=== PATIENT | male | born 1980 | race Caucasian/White ===

== ENCOUNTER 2019-02-09 15:01 | Inpatient (IN) | payer OTHER ==
[~2019-02-09] VITALS: Ht 188 cm; Wt 154.6 kg
[~2019-02-09 15:01] MED LIST: ALBIPROI INH; ALBU90OI INH; AMOX500 PO; ASPI325 PO; CEPH500 PO; DIPH50 PO; ERYT333ERA PO; GUAN1; HCTZ 25 MG; HYDACE5325 PO; HYDGUAL120 PO; METO100ER; METO100ER PO; METO50ER; METO50ER PO; PSEU120ER PO; RANI150 PO; RXHYDGUAS PO; SERT50; SULTRIDS PO
[2019-02-09] MEDS ORDERED: AMLO5 PO (15:51)
[2019-02-09] MEDS ORDERED: METF500 PO (15:51)
[2019-02-09] MEDS ORDERED: ZESTORETIC 20-121 EA PO (15:51)
[2019-02-09] MEDS ORDERED: BASAGLAR K100 UNIT/1 (15:52)
[2019-02-09] MEDS ORDERED: FLUOXETINE HCL60 MG PO (15:52)
[2019-02-09] MEDS ORDERED: ACET500 PO (15:53)
[2019-02-09] MEDS ORDERED: Novolog100 UNIT/2 SC (15:53)
[2019-02-09] MEDS ORDERED: Amitriptyline100 MG PO (15:54)
[2019-02-09] MEDS ORDERED: ALBU90OI INH (15:54)
[2019-02-09] MEDS ORDERED: STIOLTO RESPIMAT4 GM INH (15:54)
[2019-02-09 15:58] LABS: BASOPHILS ABSOLUTE AUTO 0.09 K/mm3 (0.00-0.23); BASOPHILS PERCENT AUTO 1 % (0-2); EOSINOPHILS ABSOLUTE AUTO 0.04 K/mm3 (0.00-0.68); EOSINOPHILS PERCENT AUTO 0 % (0-6); Hematocrit 41.5 % (37.0-53.0); Hemoglobin 13.7 g/dL (13.5-17.5); IMMATURE GRAN ABSOLUTE AUTO 0.19 K/mm3 (0.00-0.10); IMMATURE GRAN PERCENT AUTO 1 % (0-1); LYMPHOCYTES ABSOLUTE AUTO 1.37 K/mm3 (0.84-5.20); LYMPHOCYTES PERCENT AUTO 9 % (21-46); MONOCYTES ABSOLUTE AUTO 1.35 K/mm3 (0.16-1.47); MONOCYTES PERCENT AUTO 8 % (4-13); Mean Corpuscular HGB 26.1 pg (26.0-34.0); Mean Corpuscular Volume 79 fL (80-100); Mean Platelet Volume 9.9 fL (9.1-12.4); NEUTROPHILS ABSOLUTE AUTO 13.13 K/mm3 (1.96-9.15); NEUTROPHILS PERCENT AUTO 81 % (41-73); Platelet Count 214 K/mm3 (150-400); RDW Coefficient Variation 14.8 % (11.7-14.2); RDW Standard Deviation 42.6 fL (35.1-46.3); Red Blood Cell Count 5.24 M/mm3 (4.30-5.90); White Blood Cell Count 16.17 K/mm3 (4.00-11.30)
[2019-02-09 16:26] LABS: Alanine Aminotransfer (ALT/SGP 17 U/L (12-78); Albumin, Blood 2.6 g/dL (3.4-5.0); Albumin/Globulin Ratio 0.5 (0.8-1.8); Alk Phos 73 U/L (50-136); Anion Gap 9 mmol/L (6-16); Aspartate Aminotrans (AST/SGOT 14 U/L (12-37); Bilirubin, Total 0.7 mg/dL (0.1-1.0); Blood Urea Nitrogen 15 mg/dL (8-24); Bun/Creatinine Ratio 20.1 (12.0-20.0); CO2, Blood 25 mmol/L (21-32); Chloride, Blood 96 mmol/L (98-108); Creatinine, Blood 0.75 mg/dL (0.60-1.20); Globulin, Blood 5.5 g/dL (2.2-4.0); Glomerular Filtration Rate >60 (60-); Glucose, Blood 215 mg/dL (70-99); Potassium, Blood 3.7 mmol/L (3.5-5.5); Sodium, Blood 130 mmol/L (136-145); Total Protein, Blood 8.1 g/dL (6.4-8.2)
--- NOTE | 2019-02-09 22:55 | NUR ---
CRIT LAB VALUE: LACTIC ACID 2.2 PT IS CURRENTLY UNDER THE SEPSIS PROTOCOL. IVF AND FREQ TEMP CHECKS ARE BEING DONE. CHARGE NURSE NOTIFIED. WILL CONTINUE TO MONITOR CLOSELY
[2019-02-10 05:21] LABS: BASOPHILS ABSOLUTE AUTO 0.08 K/mm3 (0.00-0.23); BASOPHILS PERCENT AUTO 1 % (0-2); EOSINOPHILS ABSOLUTE AUTO 0.11 K/mm3 (0.00-0.68); EOSINOPHILS PERCENT AUTO 1 % (0-6); Hematocrit 39.3 % (37.0-53.0); Hemoglobin 12.8 g/dL (13.5-17.5); IMMATURE GRAN ABSOLUTE AUTO 0.18 K/mm3 (0.00-0.10); IMMATURE GRAN PERCENT AUTO 1 % (0-1); LYMPHOCYTES ABSOLUTE AUTO 1.27 K/mm3 (0.84-5.20); LYMPHOCYTES PERCENT AUTO 8 % (21-46); MONOCYTES ABSOLUTE AUTO 1.47 K/mm3 (0.16-1.47); MONOCYTES PERCENT AUTO 9 % (4-13); Mean Corpuscular HGB 25.9 pg (26.0-34.0); Mean Corpuscular HGB Conc 32.6 g/dL (31.5-36.5); Mean Corpuscular Volume 80 fL (80-100); Mean Platelet Volume 10.3 fL (9.1-12.4); NEUTROPHILS ABSOLUTE AUTO 12.63 K/mm3 (1.96-9.15); NEUTROPHILS PERCENT AUTO 80 % (41-73); Platelet Count 212 K/mm3 (150-400); RDW Standard Deviation 42.9 fL (35.1-46.3); Red Blood Cell Count 4.94 M/mm3 (4.30-5.90); White Blood Cell Count 15.74 K/mm3 (4.00-11.30)
[2019-02-10 05:42] LABS: Anion Gap 9 mmol/L (6-16); Blood Urea Nitrogen 13 mg/dL (8-24); Bun/Creatinine Ratio 17.6 (12.0-20.0); CO2, Blood 25 mmol/L (21-32); Calcium, Blood 8.5 mg/dL (8.5-10.1); Chloride, Blood 101 mmol/L (98-108); Creatinine, Blood 0.74 mg/dL (0.60-1.20); Glomerular Filtration Rate >60 (60-); Glucose, Blood 134 mg/dL (70-99); Potassium, Blood 3.4 mmol/L (3.5-5.5); Sodium, Blood 135 mmol/L (136-145)
--- NOTE | 2019-02-10 05:53 | NUR ---
A/OX4, INDEPENDENT TO THE BR, PLEASANT, COOPERATIVE. PT REPORTS CHRONIC TACHYCARDIA, SO HEART RATE IS NOT AN ACCURATE INDICATOR OF SEPTIC SHOCK. HOWEVER, PT HAS BEEN FEBRILE FOR MOST OF THIS SHIFT. PT HAS BEEN MEDICATED FOR FEVER PER ORDER, AND HIS TEMP HAS BEEN CLOSELY MONITORED THROUGHOUT THIS SHIFT. PT TOLERATING IV ABX W/OUT ADVERSE EFFECT. BP REMAINS WNL, BUT PT'S LAST LACTIC ACID WAS ELEVATED. PT REPORTS THAT HIS R LE "FEELS BETTER, IT'S NOT SO TIGHT ANYMORE". WILL REPORT TO ON-COMING SHIFT.
--- NOTE | 2019-02-10 18:53 | NUR ---
SHIFT SUMMARY; PT ADMITED FOR CELLULITIS IN THE RLE. HE IS ABLE TO AMBULATE TO THE RESTROOM INDEPENDENTATLY. PT DEVELOPED A HEADACE AND WAS GIVEN PRN TYLENOL. PTS AT BEDSIDE. HE IS EATING AND DRINKING WELL. LACTIC ACID LEVELS IMPROVED FROM PERVIOUS SHIFT.
--- NOTE | 2019-02-11 04:27 | NUR ---
SHIFT SUMMARY: PT IS ALERT AND ORIENTED. PT IS CALM AND COOPERATIVE WITH CARE. PT CALLS APPROPRIATELY. PT IS INDEPENDENT IN THE ROOM. PT HAD FEVER EARLY IN THE NIGHT, GAVE PRN IBUPROFEN. PT DENIES PAIN, NAUSEA, VOMITING, AND SOB. RLE WEEPING A LITTLE, WRAPPED WITH GAUZE BANDAGE. PT SLEPT INTERMITTENTLY THROUGHOUT THE NIGHT. NO ACUTE CHANGES OR COMPICATIONS. BED IN LOW POSITION, CALL LIGHT WITHIN REACH. WILL REPORT TO DAY NURSE.
[2019-02-11 05:42] LABS: BASOPHILS ABSOLUTE AUTO 0.08 K/mm3 (0.00-0.23); BASOPHILS PERCENT AUTO 1 % (0-2); EOSINOPHILS ABSOLUTE AUTO 0.16 K/mm3 (0.00-0.68); EOSINOPHILS PERCENT AUTO 1 % (0-6); Hematocrit 38.8 % (37.0-53.0); Hemoglobin 12.5 g/dL (13.5-17.5); IMMATURE GRAN ABSOLUTE AUTO 0.43 K/mm3 (0.00-0.10); IMMATURE GRAN PERCENT AUTO 3 % (0-1); LYMPHOCYTES ABSOLUTE AUTO 1.11 K/mm3 (0.84-5.20); LYMPHOCYTES PERCENT AUTO 9 % (21-46); MONOCYTES ABSOLUTE AUTO 1.33 K/mm3 (0.16-1.47); MONOCYTES PERCENT AUTO 11 % (4-13); Mean Corpuscular HGB 26.3 pg (26.0-34.0); Mean Corpuscular HGB Conc 32.2 g/dL (31.5-36.5); Mean Corpuscular Volume 82 fL (80-100); Mean Platelet Volume 10.1 fL (9.1-12.4); NEUTROPHILS ABSOLUTE AUTO 9.55 K/mm3 (1.96-9.15); NEUTROPHILS PERCENT AUTO 75 % (41-73); Platelet Count 232 K/mm3 (150-400); RDW Coefficient Variation 14.9 % (11.7-14.2); RDW Standard Deviation 44.3 fL (35.1-46.3); Red Blood Cell Count 4.76 M/mm3 (4.30-5.90); White Blood Cell Count 12.66 K/mm3 (4.00-11.30)
[2019-02-11 05:56] LABS: Albumin, Blood 2.1 g/dL (3.4-5.0); Anion Gap 6 mmol/L (6-16); Blood Urea Nitrogen 15 mg/dL (8-24); Bun/Creatinine Ratio 17.6 (12.0-20.0); CO2, Blood 27 mmol/L (21-32); Calcium, Blood 8.8 mg/dL (8.5-10.1); Chloride, Blood 102 mmol/L (98-108); Creatinine, Blood 0.85 mg/dL (0.60-1.20); Glomerular Filtration Rate >60 (60-); Glucose, Blood 112 mg/dL (70-99); Phosphorus, Blood 3.8 mg/dL (2.5-4.9); Potassium, Blood 3.3 mmol/L (3.5-5.5); Sodium, Blood 135 mmol/L (136-145)
--- NOTE | 2019-02-11 18:40 | NUR ---
SHIFT SUMMARY: ELEVATED TEMPRATURE, TREATED WITH PRN IBUPROFEN, TEMPRATURE REMAINED ELEVATED SO GAVE PRN DOSE OF TYLENOL, PT IS NOW AFEBRILE. PT USED CHLORHEXIDINE CLOTH IN SHOWER TO BLE. PT INDEPENDENT IN THE ROOM. NO OTHER ACUTE CHANGES THIS SHIFT. PT EATING AND DRINKING WELL.
[2019-02-12 05:41] LABS: BASOPHILS ABSOLUTE AUTO 0.06 K/mm3 (0.00-0.23); BASOPHILS PERCENT AUTO 1 % (0-2); EOSINOPHILS ABSOLUTE AUTO 0.17 K/mm3 (0.00-0.68); EOSINOPHILS PERCENT AUTO 2 % (0-6); Hematocrit 38.3 % (37.0-53.0); Hemoglobin 12.4 g/dL (13.5-17.5); IMMATURE GRAN ABSOLUTE AUTO 0.24 K/mm3 (0.00-0.10); IMMATURE GRAN PERCENT AUTO 2 % (0-1); LYMPHOCYTES ABSOLUTE AUTO 0.87 K/mm3 (0.84-5.20); LYMPHOCYTES PERCENT AUTO 9 % (21-46); MONOCYTES ABSOLUTE AUTO 0.87 K/mm3 (0.16-1.47); MONOCYTES PERCENT AUTO 9 % (4-13); Mean Corpuscular HGB 25.9 pg (26.0-34.0); Mean Corpuscular HGB Conc 32.4 g/dL (31.5-36.5); Mean Corpuscular Volume 80 fL (80-100); Mean Platelet Volume 9.8 fL (9.1-12.4); NEUTROPHILS ABSOLUTE AUTO 7.91 K/mm3 (1.96-9.15); NEUTROPHILS PERCENT AUTO 78 % (41-73); Platelet Count 276 K/mm3 (150-400); RDW Coefficient Variation 15.2 % (11.7-14.2); RDW Standard Deviation 44.2 fL (35.1-46.3); Red Blood Cell Count 4.78 M/mm3 (4.30-5.90); White Blood Cell Count 10.12 K/mm3 (4.00-11.30)
--- NOTE | 2019-02-12 05:55 | NUR ---
SHIFT SUMMARY PT IS A 38 Y/O MALE, ADMITTED FOR RLE CELLULITIS. THE PT IS A&O X 4, AND INDEPENDENT IN THE ROOM. HE REPORTS THAT HIS LEG IS "MUCH BETTER", AND DENIED ANY PAIN IN HIS LEG DURING THE NIGHT. HE DID REPORT A MILD HEADACHE IN THE MORNING, WHICH WAS TREATED WITH THE SCHEDULED TORADOL. NO COMPLAINTS OF NAUSEA OR SOB. VITALS REMAINED STABLE. PT SLEPT WELL THROUGH THE NIGHT. NO OTHER ACUTE CHANGES IN PT CONDITION NOTED. WILL CONTINUE TO MONITOR AND TREAT PER EMAR.
[2019-02-12 06:06] LABS: Alanine Aminotransfer (ALT/SGP 14 U/L (12-78); Albumin, Blood 2.1 g/dL (3.4-5.0); Albumin/Globulin Ratio 0.4 (0.8-1.8); Alk Phos 79 U/L (50-136); Anion Gap 6 mmol/L (6-16); Aspartate Aminotrans (AST/SGOT 15 U/L (12-37); Bilirubin, Total 0.6 mg/dL (0.1-1.0); Blood Urea Nitrogen 17 mg/dL (8-24); Bun/Creatinine Ratio 20.5 (12.0-20.0); CO2, Blood 28 mmol/L (21-32); Calcium, Blood 9.2 mg/dL (8.5-10.1); Chloride, Blood 101 mmol/L (98-108); Creatinine, Blood 0.83 mg/dL (0.60-1.20); Globulin, Blood 5.2 g/dL (2.2-4.0); Glomerular Filtration Rate >60 (60-); Glucose, Blood 115 mg/dL (70-99); Potassium, Blood 3.5 mmol/L (3.5-5.5); Sodium, Blood 135 mmol/L (136-145); Total Protein, Blood 7.3 g/dL (6.4-8.2)
--- NOTE | 2019-02-12 10:50 | NUR ---
Gave Lantus 60 units verified two RN check with Estella Mcintosh RN and Corey Lopez RN.
--- NOTE | 2019-02-12 16:36 | NUR ---
SHIFT SUMMARY- PT DENIES PAIN. PT HAD FEVER OF 100.0 THIS AM. MEDS GIVEN PER EMAR. TEMP 99.3 THIS AFTERNOON. DENIES N/V. PT REPORTS SOB. PT REPORTS HE HAS COPD AND CURRENT LEVEL OF SOB IS BASELINE. 96% ON RA. INDEPENDENT IN THE ROOM. NO OTHER SIGNIFICANT CHANGES THIS SHIFT.
--- NOTE | 2019-02-13 05:08 | NUR ---
SHIFT SUMMARY PT A/O INDEPENDENT. DENIES PAIN IN R LEG. R LEG WEEPING FROM BLISTERS SMALL AMOUNT OF YELLOW FLUID. HE WAS ABLE TO SLEEP ON AND OFF T/O NIGHT. CALL LIGHT IN REACH.
[2019-02-13 05:19] LABS: BASOPHILS ABSOLUTE AUTO 0.08 K/mm3 (0.00-0.23); BASOPHILS PERCENT AUTO 1 % (0-2); EOSINOPHILS PERCENT AUTO 2 % (0-6); Hematocrit 38.6 % (37.0-53.0); Hemoglobin 12.3 g/dL (13.5-17.5); IMMATURE GRAN ABSOLUTE AUTO 0.26 K/mm3 (0.00-0.10); IMMATURE GRAN PERCENT AUTO 2 % (0-1); LYMPHOCYTES ABSOLUTE AUTO 1.49 K/mm3 (0.84-5.20); LYMPHOCYTES PERCENT AUTO 11 % (21-46); MONOCYTES ABSOLUTE AUTO 0.97 K/mm3 (0.16-1.47); MONOCYTES PERCENT AUTO 7 % (4-13); Mean Corpuscular HGB 25.8 pg (26.0-34.0); Mean Corpuscular HGB Conc 31.9 g/dL (31.5-36.5); Mean Corpuscular Volume 81 fL (80-100); Mean Platelet Volume 9.8 fL (9.1-12.4); NEUTROPHILS ABSOLUTE AUTO 10.28 K/mm3 (1.96-9.15); NEUTROPHILS PERCENT AUTO 77 % (41-73); Platelet Count 348 K/mm3 (150-400); RDW Coefficient Variation 15.1 % (11.7-14.2); Red Blood Cell Count 4.77 M/mm3 (4.30-5.90); White Blood Cell Count 13.28 K/mm3 (4.00-11.30)
[2019-02-13 05:45] LABS: Alanine Aminotransfer (ALT/SGP 14 U/L (12-78); Albumin, Blood 1.9 g/dL (3.4-5.0); Albumin/Globulin Ratio 0.4 (0.8-1.8); Alk Phos 85 U/L (50-136); Anion Gap 6 mmol/L (6-16); Aspartate Aminotrans (AST/SGOT 18 U/L (12-37); Bilirubin, Total 0.6 mg/dL (0.1-1.0); Blood Urea Nitrogen 20 mg/dL (8-24); Bun/Creatinine Ratio 24.9 (12.0-20.0); CO2, Blood 26 mmol/L (21-32); Chloride, Blood 102 mmol/L (98-108); Globulin, Blood 5.1 g/dL (2.2-4.0); Glomerular Filtration Rate >60 (60-); Glucose, Blood 83 mg/dL (70-99); Potassium, Blood 3.7 mmol/L (3.5-5.5); Sodium, Blood 134 mmol/L (136-145)
--- NOTE | 2019-02-13 17:19 | NUR ---
SHIFT SUMMARY- PT DENIES PAIN. DENIES N/V. PT REPORTS SOB IS AT HIS BASELINE LEVEL. PT'S BLOOD SUGAR 85 THIS AM. JUICE GIVEN TO PT. BLOOD SUGAR 115 UPON RECHECKING AN HOUR LATER. PT REPORTS 115 IS STILL A LOW BLOOD SUGAR FOR HIM. PT REFUSED AM LANTUS AND AM METFORMIN. PT'S BLOOD SUGAR 109 THIS PM. PT C/O OF HIS R LEG ITCHING. MEDS GIVEN PER EMAR. INDEPENDENT IN THE ROOM. FAMILY IN TO SEE PT THIS PM. NO OTHER SIGNIFICANT CHANGES THIS SHIFT.
--- NOTE | 2019-02-14 05:23 | NUR ---
SHIFT SUMMARY PT A/O INDEPENDENT. DENIES PAIN IN R LEG. SLEEP STUDY DONE TO SEE IF HE HAS SLEEP APNEA. R LEG STILL WEEPING SMALL AMOUNT OF YELLOW FLUID. CHEM BG @ 2100 WAS 127, HE REFUSED THE 50 OF LANTUS AND ALSO REFUSED THE PO REMERON, SAYING HE DIDN'T NEED IT. HE WAS ABLE TO SLEEP ON AND OFF T/O NIGHT. CALL LIGHT IN REACH.
[2019-02-14 05:27] LABS: BASOPHILS ABSOLUTE AUTO 0.06 K/mm3 (0.00-0.23); BASOPHILS PERCENT AUTO 1 % (0-2); EOSINOPHILS ABSOLUTE AUTO 0.15 K/mm3 (0.00-0.68); EOSINOPHILS PERCENT AUTO 1 % (0-6); Hematocrit 35.4 % (37.0-53.0); Hemoglobin 11.4 g/dL (13.5-17.5); IMMATURE GRAN ABSOLUTE AUTO 0.21 K/mm3 (0.00-0.10); IMMATURE GRAN PERCENT AUTO 2 % (0-1); LYMPHOCYTES ABSOLUTE AUTO 1.37 K/mm3 (0.84-5.20); LYMPHOCYTES PERCENT AUTO 11 % (21-46); MONOCYTES ABSOLUTE AUTO 0.89 K/mm3 (0.16-1.47); MONOCYTES PERCENT AUTO 7 % (4-13); Mean Corpuscular HGB 26.1 pg (26.0-34.0); Mean Corpuscular HGB Conc 32.2 g/dL (31.5-36.5); Mean Corpuscular Volume 81 fL (80-100); Mean Platelet Volume 9.4 fL (9.1-12.4); NEUTROPHILS ABSOLUTE AUTO 9.59 K/mm3 (1.96-9.15); NEUTROPHILS PERCENT AUTO 78 % (41-73); Platelet Count 378 K/mm3 (150-400); RDW Coefficient Variation 14.9 % (11.7-14.2); RDW Standard Deviation 44.8 fL (35.1-46.3); Red Blood Cell Count 4.36 M/mm3 (4.30-5.90); White Blood Cell Count 12.27 K/mm3 (4.00-11.30)
[2019-02-14 05:42] LABS: Anion Gap 5 mmol/L (6-16); Blood Urea Nitrogen 13 mg/dL (8-24); Bun/Creatinine Ratio 16.7 (12.0-20.0); CO2, Blood 27 mmol/L (21-32); Calcium, Blood 8.5 mg/dL (8.5-10.1); Chloride, Blood 103 mmol/L (98-108); Creatinine, Blood 0.78 mg/dL (0.60-1.20); Glomerular Filtration Rate >60 (60-); Glucose, Blood 140 mg/dL (70-99); Potassium, Blood 4.1 mmol/L (3.5-5.5); Sodium, Blood 135 mmol/L (136-145)
--- NOTE | 2019-02-14 14:31 | NUR ---
MID SHIFT NOTE PATIENT IS RESTING IN BED WATCHING TV. HE NOTED SOME SHORTNESS OF BREATH AFTER SHOWER UPON RETURNING TO BED THAT RESOLVED WITH REST.
[2019-02-14 15:45] LABS: Vancomycin, Trough 17.5 ug/mL (5.0-10.0)
--- NOTE | 2019-02-14 18:45 | NUR ---
SHIFT SUMMARY OX4 INDEPENDENT IN ROOM. CELLULITIS IMPROVING. NEW IV PLACED THIS P.M. VANCOMYCIN INFUSING. CALM, COOPERATIVE PLEASANT. CT WITH CONTRAST THIS P.M. REFUSED METFORMIN THIS P.M.
--- NOTE | 2019-02-15 04:36 | NUR ---
SHIFT SUMMARY: NO ACUTE CHANGES TONIGHT. PT C/O OF PAIN TO R ARM AT OLD IV SITE SINCE IV CONTRAST DURING CT. IV WAS REMOVED AROUND 1800 BY DAYSHIFT RN BUT REDNESS AND PAIN STILL SUBSIDES. RLE CELLULITIS IS BLISTERING, WEEPING. ELEVATED ON PILLOWS. REDNESS HAS DECREASED COMPARING TO TRACE MARKINGS ON SKIN. PT DENIES PAIN IN RLE. ZOSYN AND VANCO ADMINISTERED PER EMAR ORDERS. VSS. A&O X 4, INDEPENDENT IN RM. CBG 154, PT REFUSES PM LANTUS STATES, "IT WILL MAKE MY BLOOD SUGAR TANK." NO OTHER CHANGES TO REPORT. WILL CONT TO MONITOR AND PROVIDE CARE UNTIL PRESUMED BY ONCOMING RN.
--- NOTE | 2019-02-15 04:44 | NUR ---
METFORMIN TO BE HELD 02/15. WILL PASS OFF TO DAYSHIFT RN IN REPORT.
[2019-02-15 04:54] LABS: BASOPHILS ABSOLUTE AUTO 0.07 K/mm3 (0.00-0.23); BASOPHILS PERCENT AUTO 1 % (0-2); EOSINOPHILS ABSOLUTE AUTO 0.21 K/mm3 (0.00-0.68); EOSINOPHILS PERCENT AUTO 2 % (0-6); Hematocrit 35.5 % (37.0-53.0); Hemoglobin 11.2 g/dL (13.5-17.5); IMMATURE GRAN ABSOLUTE AUTO 0.17 K/mm3 (0.00-0.10); IMMATURE GRAN PERCENT AUTO 2 % (0-1); LYMPHOCYTES ABSOLUTE AUTO 1.42 K/mm3 (0.84-5.20); LYMPHOCYTES PERCENT AUTO 13 % (21-46); MONOCYTES ABSOLUTE AUTO 0.77 K/mm3 (0.16-1.47); MONOCYTES PERCENT AUTO 7 % (4-13); Mean Corpuscular HGB 25.3 pg (26.0-34.0); Mean Corpuscular HGB Conc 31.5 g/dL (31.5-36.5); Mean Corpuscular Volume 80 fL (80-100); Mean Platelet Volume 9.1 fL (9.1-12.4); NEUTROPHILS ABSOLUTE AUTO 8.06 K/mm3 (1.96-9.15); NEUTROPHILS PERCENT AUTO 75 % (41-73); Platelet Count 397 K/mm3 (150-400); RDW Coefficient Variation 14.9 % (11.7-14.2); RDW Standard Deviation 43.8 fL (35.1-46.3); Red Blood Cell Count 4.42 M/mm3 (4.30-5.90)
[2019-02-15 05:59] LABS: Alanine Aminotransfer (ALT/SGP 13 U/L (12-78); Albumin, Blood 1.7 g/dL (3.4-5.0); Albumin/Globulin Ratio 0.3 (0.8-1.8); Alk Phos 76 U/L (50-136); Anion Gap 6 mmol/L (6-16); Aspartate Aminotrans (AST/SGOT 15 U/L (12-37); Bilirubin, Total 0.4 mg/dL (0.1-1.0); Blood Urea Nitrogen 11 mg/dL (8-24); Bun/Creatinine Ratio 15.4 (12.0-20.0); CO2, Blood 26 mmol/L (21-32); Calcium, Blood 8.3 mg/dL (8.5-10.1); Chloride, Blood 104 mmol/L (98-108); Creatinine, Blood 0.71 mg/dL (0.60-1.20); Globulin, Blood 5.5 g/dL (2.2-4.0); Glomerular Filtration Rate >60 (60-); Glucose, Blood 121 mg/dL (70-99); Potassium, Blood 4.3 mmol/L (3.5-5.5); Sodium, Blood 136 mmol/L (136-145); Total Protein, Blood 7.2 g/dL (6.4-8.2)
[2019-02-15 16:13] LABS: Vancomycin, Trough 21.1 ug/mL (5.0-10.0)
--- NOTE | 2019-02-15 18:59 | NUR ---
SHIFT SUMMARY ART DENIED PAIN THIS SHIFT. HE ENDORSED ITCHING, GIVEN SCHEDUELD TOPICAL BENADRYL. GOT IV ABX ORDERED. VANCO WAS CRITICALLY HIGH, PHARMACY ADJUSTED DOSE. RLE ELEVATED. AM METFORMIN HELD, DR MAO WANTED PM DOSE GIVEN. HELD LANTUS PER DR MAO, CBGS HAVE BEEN STABLE WITHOUT IT. IN GOOD SPIRITS, COOPERATIVE WITH CARE. UP TO BR INDEPENDENTLY. WCTM
[2019-02-16 05:18] LABS: BASOPHILS ABSOLUTE AUTO 0.06 K/mm3 (0.00-0.23); BASOPHILS PERCENT AUTO 1 % (0-2); EOSINOPHILS ABSOLUTE AUTO 0.18 K/mm3 (0.00-0.68); EOSINOPHILS PERCENT AUTO 2 % (0-6); Hematocrit 36.5 % (37.0-53.0); Hemoglobin 11.5 g/dL (13.5-17.5); IMMATURE GRAN ABSOLUTE AUTO 0.15 K/mm3 (0.00-0.10); IMMATURE GRAN PERCENT AUTO 2 % (0-1); LYMPHOCYTES ABSOLUTE AUTO 1.23 K/mm3 (0.84-5.20); LYMPHOCYTES PERCENT AUTO 16 % (21-46); MONOCYTES ABSOLUTE AUTO 0.78 K/mm3 (0.16-1.47); MONOCYTES PERCENT AUTO 10 % (4-13); Mean Corpuscular HGB 25.7 pg (26.0-34.0); Mean Corpuscular HGB Conc 31.5 g/dL (31.5-36.5); Mean Corpuscular Volume 82 fL (80-100); NEUTROPHILS ABSOLUTE AUTO 5.49 K/mm3 (1.96-9.15); NEUTROPHILS PERCENT AUTO 70 % (41-73); Platelet Count 405 K/mm3 (150-400); RDW Coefficient Variation 14.7 % (11.7-14.2); RDW Standard Deviation 44.4 fL (35.1-46.3); Red Blood Cell Count 4.47 M/mm3 (4.30-5.90); White Blood Cell Count 7.89 K/mm3 (4.00-11.30)
[2019-02-16 05:56] LABS: Alanine Aminotransfer (ALT/SGP 14 U/L (12-78); Albumin, Blood 1.8 g/dL (3.4-5.0); Albumin/Globulin Ratio 0.3 (0.8-1.8); Alk Phos 74 U/L (50-136); Anion Gap 7 mmol/L (6-16); Aspartate Aminotrans (AST/SGOT 18 U/L (12-37); Bilirubin, Total 0.6 mg/dL (0.1-1.0); Blood Urea Nitrogen 14 mg/dL (8-24); Bun/Creatinine Ratio 12.4 (12.0-20.0); CO2, Blood 26 mmol/L (21-32); Calcium, Blood 8.4 mg/dL (8.5-10.1); Chloride, Blood 103 mmol/L (98-108); Creatinine, Blood 1.13 mg/dL (0.60-1.20); Globulin, Blood 5.7 g/dL (2.2-4.0); Glomerular Filtration Rate >60 (60-); Glucose, Blood 129 mg/dL (70-99); Potassium, Blood 4.2 mmol/L (3.5-5.5); Sodium, Blood 136 mmol/L (136-145); Total Protein, Blood 7.5 g/dL (6.4-8.2)
--- NOTE | 2019-02-16 07:27 | NUR ---
SHIFT SUMMARY: NO ACUTE CHANGES OVERNIGHT. RLE CELLULITIS PERSISTS, ANTIOBIOTICS AND ANTI-INFLAMMATORY PER ORDERS. PT DENIES PAIN TO RLE. C/O PRESSURE CAUSING N/T AT START OF SHIFT, HOWEVER, A LARGE PIECE OF SKIN BROKE FREE FROM ARCH OF R FT RELIEVING PRESSURE. PT REPORTS IMPROVEMENT IN N/T. NO OTHER CHANGES TO REPORT. WILL CONT TO MONITOR AND PROVIDE CARE UNTIL PRESUMED BY ONCOMING RN.
[2019-02-16 09:44] LABS: Vancomycin, Trough 23.4 ug/mL (5.0-10.0)
--- NOTE | 2019-02-16 19:50 | NUR ---
SHIFT SUMMARY PT A&OX4. ANXIOUS AT TIMES, MAJORITY OF SHIF CALM AND COOPERTIVE WITH CARE. PT RESTING IN BED DURING SHIFT. IND TO BATHROOM. REDNESS, SWELLING AND PEELING TO RLE, REDNESS RECEEDING FROM MARKED LINES. MEDICATED WITH BENEDRYL TOPICAL AND IV TORADOL FOR INFLAMMATION. PT RECEIVING IV ANTIBIOTICS. >90% ON RA, SOB WITH EXERTION. PT REPORTS NAUSEA THIS EVENING, NO EMESIS, DENIES NEEDS FOR MEDICATION. PT DENIES PAIN T/O SHIFT. PT RECEIVED ALBUMIN AND IV LASIX. VSS. NO OTHER ACUTE CHANGES NOTED DURING SHIFT. REPORT GIVEN TO ONCOMING RN.
[2019-02-17 05:46] LABS: BASOPHILS ABSOLUTE AUTO 0.06 K/mm3 (0.00-0.23); BASOPHILS PERCENT AUTO 1 % (0-2); EOSINOPHILS ABSOLUTE AUTO 0.18 K/mm3 (0.00-0.68); EOSINOPHILS PERCENT AUTO 2 % (0-6); Hematocrit 33.9 % (37.0-53.0); Hemoglobin 10.8 g/dL (13.5-17.5); IMMATURE GRAN ABSOLUTE AUTO 0.13 K/mm3 (0.00-0.10); IMMATURE GRAN PERCENT AUTO 1 % (0-1); LYMPHOCYTES ABSOLUTE AUTO 1.21 K/mm3 (0.84-5.20); LYMPHOCYTES PERCENT AUTO 11 % (21-46); MONOCYTES ABSOLUTE AUTO 0.99 K/mm3 (0.16-1.47); MONOCYTES PERCENT AUTO 9 % (4-13); Mean Corpuscular HGB 25.8 pg (26.0-34.0); Mean Corpuscular HGB Conc 31.9 g/dL (31.5-36.5); Mean Corpuscular Volume 81 fL (80-100); Mean Platelet Volume 9.4 fL (9.1-12.4); NEUTROPHILS ABSOLUTE AUTO 8.45 K/mm3 (1.96-9.15); NEUTROPHILS PERCENT AUTO 77 % (41-73); Platelet Count 443 K/mm3 (150-400); RDW Coefficient Variation 14.7 % (11.7-14.2); RDW Standard Deviation 43.7 fL (35.1-46.3); Red Blood Cell Count 4.18 M/mm3 (4.30-5.90); White Blood Cell Count 11.02 K/mm3 (4.00-11.30)
[2019-02-17 06:19] LABS: Bun/Creatinine Ratio 10.8 (12.0-20.0); Calcium, Blood 8.9 mg/dL (8.5-10.1); Creatinine, Blood 1.66 mg/dL (0.60-1.20); Potassium, Blood 4.5 mmol/L (3.5-5.5)
--- NOTE | 2019-02-17 06:22 | NUR ---
SHIFT SUMMARY PT IS A 38 Y/O MALE, ADMITTED FOR RLE CELLULITIS. HE IS A&O X 4, AND INDEPENDENT IN THE ROOM. THE PT DENIED ANY PAIN IN HIS LEG DURING THE NIGHT, AND STATES THAT HIS LEG IS "FEELING BETTER THAN IT WAS". HE DID REPORT BILATERAL FLANK PAIN DURING THE NIGHT THAT HE DESCRIBED "ELECTRIC SHOCKS" UP HIS BACK, THAT FADED WITHOUT PAIN MEDS, AND A HEADACHE THAT WAS TREATED WITH PRN TORADOL. NO REPORTS OF NAUSEA OR SOB. VITALS REMAINED STABLE. PT SLEPT FOR SHORT AMOUNTS DURING THE NIGHT. NO OTHER ACUTE CHANGES IN PT CONDITION NOTED. WILL CONTINUE TO MONITOR AND TREAT PER EMAR.
--- NOTE | 2019-02-17 16:29 | NUR ---
SHIFT SUMMARY PT A&OX4. PT CALM AND COOPERATIVE WITH CARE. PT UP IND IN ROOM. PT SOB WITH EXERTION, >90% ON RA, RESP EVEN AND UNLABORED. PT DENIES PAIN AND N/V T/O SHIFT. REDNESS ON RIGHT LOWER EXTREMITY, SKIN PEELING AND SWELLING NOTED. PT RECEIVING IV ANTIBITOICS. PT REPORTING LOOSE STOOL, DR INGRAM NOTIFIED, CONTINUE TO MONITOR. VSS. NO OTHER ACUTE CHANGES NOTED DURING SHIFT. WILL CONTINUE TO MONITOR UNTIL REPORT GIVEN TO ONCOMING RN.
[2019-02-18 06:05] LABS: Albumin, Blood 2.1 g/dL (3.4-5.0); Anion Gap 5 mmol/L (6-16); Blood Urea Nitrogen 17 mg/dL (8-24); Bun/Creatinine Ratio 9.9 (12.0-20.0); CO2, Blood 28 mmol/L (21-32); Chloride, Blood 102 mmol/L (98-108); Creatinine, Blood 1.72 mg/dL (0.60-1.20); Glomerular Filtration Rate 47 (60-); Glucose, Blood 148 mg/dL (70-99); Phosphorus, Blood 4.6 mg/dL (2.5-4.9); Potassium, Blood 4.6 mmol/L (3.5-5.5); Sodium, Blood 135 mmol/L (136-145)
--- NOTE | 2019-02-18 07:31 | NUR ---
02/18/19 0550 VITALS STABLE. DENIES ANY PAIN THIS SHIFT. UP TO THE BATHROOM PER SELF. SEVERAL SOFT, GREEN BMS. UNEVENTFUL NIGHT.
--- NOTE | 2019-02-18 18:26 | NUR ---
SHIFT SUMMARY ART'S RLE IS STILL RED AND SWOLLEN. PT DENIES PAIN. HAD A COUPLE MUCOUS/SOFT STOOL. RECEIVED IV ABX ORDERED. INDEPENDENT IN ROOM. POSSIBLE DISCHARGE TOMORROW. WCTM
--- NOTE | 2019-02-19 04:57 | NUR ---
NOC SHIFT SUMMARY PT HAS BEEN PLEASANT AND COOPERATIVE WITH CARE THIS NIGHT. STATES IMPROVEMENT IN HIS LEG. HAS SLEPT MOST IF THE NIGHT RESTFULLY AND IS SLEEPING NOW ACTUALLY. APPEARS IN NO ACUTE DISTRESS. NO ACUTE CHANGES NOTED. WILL CONTINUE TO MONITOR.
[2019-02-19 06:13] LABS: Anion Gap 5 mmol/L (6-16); Blood Urea Nitrogen 18 mg/dL (8-24); Bun/Creatinine Ratio 10.5 (12.0-20.0); CO2, Blood 29 mmol/L (21-32); Calcium, Blood 9.1 mg/dL (8.5-10.1); Chloride, Blood 101 mmol/L (98-108); Creatinine, Blood 1.71 mg/dL (0.60-1.20); Glomerular Filtration Rate 47 (60-); Glucose, Blood 126 mg/dL (70-99); Phosphorus, Blood 4.7 mg/dL (2.5-4.9); Potassium, Blood 4.6 mmol/L (3.5-5.5); Sodium, Blood 135 mmol/L (136-145)
[2019-02-19] MEDS ORDERED: ACET325 PO (14:04)
[2019-02-19] MEDS ORDERED: ALBU90OI INH (14:05)
[2019-02-19] MEDS ORDERED: AMLO5 PO (14:06)
[2019-02-19] MEDS ORDERED: Florastor250 MG PO (14:11)
[2019-02-19] MEDS ORDERED: Ceftriaxon1 GM/50 M1 IV (14:19)
--- NOTE | 2019-02-19 16:46 | NUR ---
PT DISCHARGED THE PT VERBALIZED UNDERSTANDING OF THE DC INSTRUCTIONS, AN APPOINTMENT WAS MADE FOR THE PT AT THE [facility] IN THE AM FOR IV ANTIBIOTICS, THE PT APPEARED TO BE BREATHING EASILY ON RA, THE PTS POWER GLIDE DRESSING WAS CHANGED BEFORE DISCHARGE, PERSCRIPTION FAXED TO [facility] REQUESTED, THE PT WAS TRANSFERED VIA WHEELCHAIR ACCOMPANIED BY THE [employer] SAFET[employer] INSPECTOR AND HIS FAMILY
== END 2019-02-19 15:48 | disposition home or self-care (01) | DRG 872 ==
LOC: ER 15:01 → MEDS 17:03 → ENPENDDIS 02-19 12:07 → MEDS 02-19 15:48
PROVIDERS: Family Medicine; Internal Medicine; Pharmacist; Physician Assistant; ADMIT Internal Medicine
DX: A41.9 Sepsis, unspecified organism (principal); L03.115 Cellulitis of right lower limb; N17.9 Acute kidney failure, unspecified; E87.1 Hypo-osmolality and hyponatremia; Z68.42 Body mass index [BMI] 45.0-49.9, adult; R65.20 Severe sepsis without septic shock; E11.9 Type 2 diabetes mellitus without complications; Z79.4 Long term (current) use of insulin; I10 Essential (primary) hypertension; F32.9 Major depressive disorder, single episode, unspecified; E66.01 Morbid (severe) obesity due to excess calories; J45.909 Unspecified asthma, uncomplicated; E88.01 Alpha-1-antitrypsin deficiency; Z87.891 Personal history of nicotine dependence; E87.6 Hypokalemia; G47.00 Insomnia, unspecified
CPT/HCPCS: 36415; 73701; 80048; 80053; 80069; 80202; 82947; 83605; 85025; 87040; 87070; 87075; 87205; 94640; 94760; 94762; 96365; 98960; 99284-25; C1751; J0690; J1650; J1815; J1885; J1940; J2543; J3370; J7030; J7050; P9046; Q9967

== ENCOUNTER 2019-02-20 00:16 | Day surgery (SDC) | payer OTHER ==
[~2019-02-20 00:16] MED LIST changes: +ACET325 PO; +ACET500 PO; +AMLO5 PO; +Amitriptyline100 MG PO; +BASAGLAR K100 UNIT/1; +Ceftriaxon1 GM/50 M1 IV; +FLUOXETINE HCL60 MG PO; +Florastor250 MG PO; +METF500 PO; +Novolog100 UNIT/2 SC; +STIOLTO RESPIMAT4 GM INH; +ZESTORETIC 20-121 EA PO
== END 2019-02-20 10:18 | disposition home or self-care (01) ==
LOC: ATC 00:16
DX: L03.115 Cellulitis of right lower limb (principal); I10 Essential (primary) hypertension; E11.42 Type 2 diabetes mellitus with diabetic polyneuropathy; E11.319 Type 2 diabetes mellitus with unspecified diabetic retinopathy without macular edema; J44.9 Chronic obstructive pulmonary disease, unspecified; K21.9 Gastro-esophageal reflux disease without esophagitis; D64.9 Anemia, unspecified; F41.1 Generalized anxiety disorder; G47.33 Obstructive sleep apnea (adult) (pediatric); E66.01 Morbid (severe) obesity due to excess calories; Z87.891 Personal history of nicotine dependence; Z79.899 Other long term (current) drug therapy; Z79.4 Long term (current) use of insulin; Z88.5 Allergy status to narcotic agent
CPT/HCPCS: 96365; J0696

== ENCOUNTER 2019-02-24 00:22 | Day surgery (SDC) | payer OTHER | END 2019-02-24 22:42 | disposition home or self-care (01) | LOC: ATC 00:22 | DX: L03.115 Cellulitis of right lower limb (principal); I10 Essential (primary) hypertension; E11.51 Type 2 diabetes mellitus with diabetic peripheral angiopathy without gangrene; E11.42 Type 2 diabetes mellitus with diabetic polyneuropathy; J44.9 Chronic obstructive pulmonary disease, unspecified; F41.1 Generalized anxiety disorder; K21.9 Gastro-esophageal reflux disease without esophagitis; E78.2 Mixed hyperlipidemia; D64.9 Anemia, unspecified; G47.33 Obstructive sleep apnea (adult) (pediatric); Z87.891 Personal history of nicotine dependence | CPT/HCPCS: 96365; J0696 ==